=== PATIENT | male | born 1970 | race Caucasian/White ===

== ENCOUNTER 2023-11-05 08:45 | Day surgery (SDC) | payer OTHER ==
[~2023-11-05] VITALS: Ht 175.3 cm; Wt 89.4 kg
[2023-11-05] MEDS ORDERED: fentaNYL citrate 0.05 MG/ML VIAL ONE (09:54)
[2023-11-05] MEDS ORDERED: MIDAZOLAM 2 MG/2 ML VIAL ONE ×2 (09:54→09:55)
[2023-11-05] MEDS ORDERED: LIDOCAINE 2% 100 MG/5 ML UJET TP ONE (09:55)
[2023-11-05] MEDS ORDERED: MIDAZOLAM 2 MG/2 ML VIAL IVP ONE (11:30)
[2023-11-05] MEDS ORDERED: fentaNYL citrate 0.05 MG/ML VIAL IVP ONE (11:30)
== END 2023-11-05 11:50 | disposition home or self-care (01) ==
LOC: MDS 08:45 → MMU 08:46 → MDS 11:50
PROVIDERS: ATTEND Internal Medicine Gastroenterology
DX: K62.5 Hemorrhage of anus and rectum (principal); K64.9 Unspecified hemorrhoids; K29.80 Duodenitis without bleeding; K29.70 Gastritis, unspecified, without bleeding; K21.9 Gastro-esophageal reflux disease without esophagitis; F17.210 Nicotine dependence, cigarettes, uncomplicated; Z79.899 Other long term (current) drug therapy
CPT/HCPCS: 36415; 43239; 45378; 86677; J2250; J3010